=== PATIENT | female | born 1960 | race Caucasian/White ===

== ENCOUNTER 2022-04-05 01:39 | Day surgery (SDC) | payer OTHER, SELFPAY ==
--- NOTE | 2022-03-28 09:11 | PC.NURSE ---
Report to the Outpatient Waiting Room, entrance under the green pavilion located off [facility], at time _1130_ on date _04/05/22_. OR Time: ____1330 _. - You and your visitor will be asked a series of questions to screen for COVID 19 for your protection. - Only one visitor is allowed at this time. - The patient visitor is requested to leave or wait in car when not with patient. - A mask is required within the hospital. Patients may have clear liquids (water, carbonated beverages, clear teas, apple juice) until 3 hours prior to surgery with a maximum of 20 ounces. - No food from midnight until time of surgery - Infants may have breast milk until 4 hours before surgery, formula 6 hours prior to surgery. - Children will be allowed to drink immediately following surgery. If applicable, please bring a bottle or sippy cup to assist with drinking. Juice, water, soda, and popsicles are readily available. For infants on formula, please bring formula the day of surgery. Pacifiers are allowed. Take the following medications with a SIP of water the morning of surgery: PATIENT TO CALL BACK WITH MEDICATION LIST Medications to discontinue per physician SUPPLIMENTS, VITAMINS Date to take last dose 04/01/22 Please no make-up, nail upper sorbian, hairspray, perfume, deodorant, or body powder the day of surgery. No jewelry (including any body piercings) or valuables the day of surgery, leave them at home. Please take a shower or bath the night before, or the morning of, surgery with an antibacterial soap. Wear comfortable, loose fitting clothing. Children are encouraged to wear pajamas. - Jewelry must be removed prior to entering the operating room. Rings and piercings that are not removed may be cut off. - The hospital will not accept responsibility for valuables. - Please leave all valuables, including medications, at home the day of surgery. If you are going home after surgery, a licensed chain saw driver must drive you home. - NO public transportation without another adult. - We recommend that an adult stay with you for 24 hours following discharge. - We also recommend that you do not drive, make important decision, drink alcoholic beverages, or take any drugs that were not prescribed by your health care provider for at least 24 hours after your discharge time. For Pediatric surgeries, we recommend two adults accompany the child home (only one inside the building at this time). Follow any additional instructions given to you from your surgeon. If you or anyone in your household have experienced Covid symptoms in the past week, please notify your surgeon or the nurse liaison at the phone number below for possible testing. Telephone instructions given to _PATIENT__and asked if any additional questions and then verbalized understanding. Patient advised to call surgeon office or pre surgery nurse liaison [phone] if any additional questions.
--- NOTE | 2022-03-28 13:22 | SUR.PREOP ---
Addendum entered by Jenni Mccurdy RN 03/28/22 13:56: PT INSTRUCTED TO TAKE PROPANOLOL DIRECTED ON MARISOL MCCURDY RN Original Note: PT RETURNED CALL, MEDICATIONS OBTAINED, INSTRUCTIONS GIVEN, TO HOLD VITAMINS AND SUPPLIMENTS 3 DAYS PRIOR TO SURGERY.MAY TAKE NARATRIPTAN FOR BREAKTHROUGH MIGRAINE. INFORMED SHE MAY TAKE CELEBREX UNTIL THE DAY BEFORE.
--- NOTE | 2022-04-05 11:40 | PM.IMHP ---
H&P: HPI History of Present Illness Date/Time: 04/05/22 11:40 Chief Complaint: Vaginal bleeding. Narrative: 61 y/o on HRT who had some vaginal bleeding. Ultrasound exam shows an endometrial complex measuring 5.85 mm. Endometrial sampling was benign. However, she has continued to have additional episodes of vaginal bleeding. I have recommended additional evaluation of her endometrium. Review of Systems Review of Systems: All systems reviewed & are unremarkable except as noted in HPI and below PMFSH Past Medical History Medical History Migraines Surgical History Surgical History History of augmentation mammoplasty Social History Social History Smoking status: Never smoker Alcohol intake: current Drinks per week: 2 Living arrangements: with family Meds Home Medications and Allergies Home Medications Medication Instructions Recorded Confirmed Type acidophilus 100 million 1 cap PO DAILY 03/28/22 03/28/22 History cell-pectin, citrus 10 mg capsule celecoxib 200 mg capsule 200 mg PO BID 03/28/22 03/28/22 History cetirizine 10 mg tablet (Zyrtec) 10 mg PO DAILY 03/28/22 03/28/22 History cholecalciferol (vitamin D3) 125 125 mcg PO 3XW 03/28/22 03/28/22 History mcg (5,000 unit) tablet (Vitamin D3) estradiol 0.5 mg tablet 0.5 mg PO DAILY 03/28/22 03/28/22 History magnesium oxide 400 mg PO DAILY 03/28/22 03/28/22 History mecobalamin (vitamin B12) 1,000 1,000 mcg sublingual DAILY 03/28/22 03/28/22 History mcg disintegrating tablet,sublingual melatonin 5 mg capsule 5 mg PO HS PRN Insomnia 03/28/22 03/28/22 History naratriptan 2.5 mg tablet 2.5 mg PO ONCE PRN Migraine 03/28/22 03/28/22 History Headache pantoprazole 40 mg tablet,delayed 40 mg PO DAILY 03/28/22 03/28/22 History release progesterone micronized 100 mg 100 mg PO DAILY 03/28/22 03/28/22 History capsule propranolol 120 mg capsule,24 120 mg PO DAILY 03/28/22 03/28/22 History hr,extended release (Inderal LA) riboflavin (vitamin B2) 400 mg 400 mg PO DAILY 03/28/22 03/28/22 History tablet Allergies Allergy/AdvReac Type Severity Reaction Status Date / Time amoxicillin Allergy Rash Verified 03/28/22 09:01 potassium Allergy Rash Verified 03/28/22 09:01 Exam Const: Orientation/consciousness: patient oriented x3 Other: Well-developed, well-nourished female in no acute distress. Neck: Thyroid: thyroid normal Lymphatic: no lymphadenopathy noted (in neck, axilla or inguinal nodes) Resp: Effort & Inspection: normal respiratory effort Auscultation: clear to auscultation bilaterally Cardio: Rate: regular rate Rhythm: regular rhythm Heart sounds: S1 normal heart sound present and S2 normal heart sound present GI: Other: ABD: Soft, nontender, nondistended. No guarding or rebound tenderness. No hepatosplenomegaly. : General: Yes no CVA tenderness Other: External genitalia: normal female hair distribution, without lesion. Urethral meatus: no lesion, non prolapsed. Bladder: no mass, nontender Vagina: atrophic, without lesion or discharge. No cystocele or rectocele. Cervix: no lesion or discharge. Uterus: small, anteverted, freely mobile, nontender Adnexa: no mass or tenderness. Anus/perineum: no lesions, nontender Back/Spine/Pelvis: Back: no CVA tenderness Skin: General skin exam: normal color and no rashes or lesions noted Neuro: General: patient oriented x3 Extrem: Other: Extremities: nontender with no edema Psych: Mental Status: mental status grossly normal Affect: normal affect Assessment and Plan Assessment and plan (1) Postmenopausal bleeding: Code(s): N95.0 - Postmenopausal bleeding Status: Acute Assessment and Plan: A: Postmenopausal bleeding. P: I have offered hysteroscopy with dilatio
[2022-04-05] MEDS: LACTATED RINGERS 1,000 ML 30 ML IV CONT (12:20)
[2022-04-05] MEDS: ACETAMINOPHEN 500 MG TABLET 1000 MG PO (12:20)
[2022-04-05 12:25] VITALS: BP 147/85; PULSE 77; RESP 16; TEMP 36.5; O2SAT 98
--- NOTE | 2022-04-05 13:01 | WPDANESEPPF ---
Anes - Initial Pre Proc Eval Procedure: Operation Date: 04/05/22 13:30 Proposed Procedures p Hysteroscopy, Dilation and Curettage - Ish Dasilva MD Date/Time: 04/05/22 13:01 Surgeon: Ish Dasilva MD Pre Op Diagnosis: post menopausal bleeding Patient Data Age: 61 Gender: F Height: 1.65 m Weight: 81.6 kg Last Vital Signs Temp 97.7 F 04/05/22 12:25 Pulse 77 04/05/22 12:25 Resp 16 04/05/22 12:25 BP 147/85 H 04/05/22 12:25 Pulse Ox 98 04/05/22 12:25 O2 Del Method Room Air 04/05/22 12:25 Allergies Allergy/AdvReac Type Severity Reaction Status Date / Time amoxicillin Allergy Rash Verified 04/05/22 11:49 potassium Allergy Rash Verified 04/05/22 11:49 Home Medications Medication Instructions Recorded Confirmed Type acidophilus 100 million 1 cap PO DAILY 03/28/22 04/05/22 History cell-pectin, citrus 10 mg capsule celecoxib 200 mg capsule 200 mg PO BID 03/28/22 04/05/22 History cetirizine 10 mg tablet (Zyrtec) 10 mg PO DAILY 03/28/22 04/05/22 History cholecalciferol (vitamin D3) 125 125 mcg PO 3XW 03/28/22 04/05/22 History mcg (5,000 unit) tablet (Vitamin D3) estradiol 0.5 mg tablet 0.5 mg PO DAILY 03/28/22 04/05/22 History magnesium oxide 400 mg PO DAILY 03/28/22 04/05/22 History mecobalamin (vitamin B12) 1,000 1,000 mcg sublingual DAILY 03/28/22 04/05/22 History mcg disintegrating tablet,sublingual melatonin 5 mg capsule 5 mg PO HS PRN Insomnia 03/28/22 04/05/22 History naratriptan 2.5 mg tablet 2.5 mg PO ONCE PRN Migraine 03/28/22 03/28/22 History Headache pantoprazole 40 mg tablet,delayed 40 mg PO DAILY 03/28/22 04/05/22 History release progesterone micronized 100 mg 100 mg PO DAILY 03/28/22 04/05/22 History capsule propranolol 120 mg capsule,24 120 mg PO DAILY 03/28/22 04/05/22 History hr,extended release (Inderal LA) riboflavin (vitamin B2) 400 mg 400 mg PO DAILY 03/28/22 04/05/22 History tablet Patient hx anesthesia problems: none Family hx anesthesia problems: none Results Review: All pre-operative results and documents have been reviewed as part of the pre-operative evaluation. PMFSH Past Medical History Medical History Migraines Surgical History Surgical History History of augmentation mammoplasty Social History Social History Smoking status: Never smoker Alcohol intake: current Drinks per week: 2 Living arrangements: with family Darlin Lange Final PreProcedure Day of Procedure 04/05/22 13:01 Patient weight: overweight Heart: regular rate and rhythm Lungs: clear to auscultation Airway: Mallampati scale class II Neurological: alert and oriented Last oral intake: >/= 8 hours ASA classification: II Emergent: no Anesthetic plan: proceed Anesthesia type and monitoring: general GIVS and standard monitoring Results Review: All pre-operative results and documents have been reviewed as part of the pre-operative evaluation. Informed Consent: The patient's anesthetic plan and its attendant risks and benefits were discussed with the patient/family/POA. Questions were solicited and answers provided to the satisfaction of the patient/family/POA.
--- NOTE | 2022-04-05 13:23 | WPDHPUPDATE1 ---
History and Physical Update Update Date/Time: 04/05/22 13:23 History and Physical has been reviewed, including an updated exam of the patient. There are NO changes in the patient's condition. Risks, benefits, and alternatives have been discussed and questions answered. Patient agrees to proceed with procedure.
--- NOTE | 2022-04-05 13:53 | W.PM.PROC2 ---
Procedure Note - Detailed Date of Procedure 04/05/22 Pre-op Diagnosis post menopausal bleeding Post-op Diagnosis Same Procedure Performed Hysteroscopy Dilation and sharp curettage Endometrial polypectomy Surgeon Ish Dasilva MD Anesthesia MAC and Local (1% lidocaine) Findings Small endometrial polyp in left fundal region. Otherwise, atrophic-appearing endometrium. Both tubal ostia seen. Description of Procedure The patient was taken to the operating room where she was prepared and draped in the usual sterile fashion in the dorsal lithotomy position. The bladder was drained with a red rubber catheter. A sterile speculum was placed into the vagina. The anterior lip of the cervix was grasped with single-tooth tenaculum. Ten mL of 1% lidocaine was administered in a paracervical block. The cervix was then gently dilated using Hegar dilators until an 8 mm dilator could be passed. Hysteroscopy was performed using sterile saline as a distention medium. Findings are as noted above. A polyp forceps was advanced and the small endometrial polyp was removed. Sharp curettage was then performed, and endometrial curettings were collected on a Telfa pad and passed off to be sent to pathology. Hemostasis was excellent. Sponge, lap, needle and instrument counts were correct. The patient was awakened and taken to the recovery room in stable condition. I was present and scrubbed through the entire procedure. Implants None Estimated Blood Loss 5 Drains No Packing No Pathology Yes (Endometrial curettings) Complications None Condition Stable Disposition PACU
[2022-04-05 13:57] VITALS: BP 167/89; PULSE 81; RESP 16; O2SAT 96
[2022-04-05 14:20] VITALS: BP 164/88; PULSE 77; RESP 16; O2SAT 96
[2022-04-05 14:50] VITALS: BP 167/78; PULSE 66; RESP 16
== END 2022-04-05 14:59 | disposition home or self-care (01) ==
PROVIDERS: PCP Internal Medicine; Visit Provider Obstetrics & Gynecology
PROC: 0U5B8ZZ Destruction of Endometrium, Via Natural or Artificial Opening Endoscopic (ICD-10-PCS; CPT 58563; principal; 2022-04-05 13:30)
DX: N95.0 Postmenopausal bleeding (principal); N84.0 Polyp of corpus uteri
CPT/HCPCS: 58558; 88305; A9270; J2250; J2405; J2704; J3010; J7030; J7120